=== PATIENT | female | born 1990 | race Caucasian/White ===

== ENCOUNTER → 2020-06-11 | Outpatient (CLI) | payer SELFPAY ==
--- NOTE | 2020-06-11 15:54 | RADIOLOGY REPORT (SQ) ---
EXAM DESCRIPTION: U/S [id number] TRNABD 1GES W/ODOP IMAGES COMPLETED DATE/TIME: 06/11/2020 3:01 pm REASON FOR STUDY: ENCOUNTER SUPERVISION NORMAL FIRST PREG Z34.01 ENCNTR FOR SUPRVSN OF NORMAL FIRST PREG, FIRST TRIMES COMPARISON: None. TECHNIQUE: Transabdominal static and realtime grayscale images acquired of the pelvis. Additional se lected spectral and color Doppler images recorded. All images stored on PACs. bHCG: Not available. CLINICAL DATES: LMP 04/04/2020 9 weeks 5 days LIMITATIONS: None. FINDINGS: FETUS: Single Living intrauterine . ULTRASOUND EGA: 8 weeks 1 day ULTRASOUND BETSEY: 01/20/2021 EFW: Not applicable less than 20 weeks. CRL: 1.66 cm FHR: 169 beats per minute. SURVEY: Too early to assess. AMNIOTIC FLUID: Adequate amount. PLACENTA: Not yet developed due to early gestation. SUBCHORIONIC BLEED: No SIZE OF BLEED: Not applicable. UTERUS: No masses. No anomalies. CERVICAL LENGTH: 2.4 cm. Closed. RIGHT ADNEXA: Normal ovary with normal vascular flow. 3.7 x 2.9 x 2.6 cm. No adnexal free fluid. No adnexal masses. LEFT ADNEXA: Normal ovary with normal vascular flow. 2.8 x 1.9 x 2.3 cm. No adnexal free fluid. No adnexal masses. FREE FLUID: None. OTHER: No other significant finding. IMPRESSION: LIVING INTRAUTERINE . EGA 8 weeks 1 day. Trimester of : First trimester - 0 to 13 weeks. TECHNICAL DOCUMENTATION: JOB ID: [id number] [employer]- All Rights Reserved rev-10/21 Reading location - IP/workstation name: [email or web address]
== END ==
LOC: RAD 14:45
PROVIDERS: ATTEND Midwife
DX: Z34.01 Encounter for supervision of normal first pregnancy, first trimester (principal)
CPT/HCPCS: 76801